=== PATIENT | female | born 1960 | race Caucasian/White ===

== ENCOUNTER 2023-03-31 08:53 | Emergency (ER) | payer MEDICAID ==
[~2023-03-31] VITALS: Ht 157.5 cm; Wt 66.2 kg
[2023-03-31 08:55] VITALS: BP_SYST 150; PULSE 87; RESP 18; TEMP 97.1; O2SAT 97
== END 2023-03-31 10:16 | disposition home or self-care (01) ==
LOC: SED 08:53
DX: S62.337A Displaced fracture of neck of fifth metacarpal bone, left hand, initial encounter for closed fracture (principal); Z79.899 Other long term (current) drug therapy; W18.40XA Slipping, tripping and stumbling without falling, unspecified, initial encounter; Y93.89 Activity, other specified; Y92.89 Other specified places as the place of occurrence of the external cause; Y99.8 Other external cause status
CPT/HCPCS: 99283